=== PATIENT | male | born 1960 | race Caucasian/White ===

== ENCOUNTER → 2018-06-21 06:50 | Outpatient (CLI) | payer OTHER, SELFPAY ==
[2018-06-21 08:01] LABS: Add Manual Diff / Slide Review NO; Basophils Absolute Auto 200 /uL (0-100); Basophils Percent Auto 3.3 % (0-2); Eosinophils Absolute Auto 200 /uL (0-450); Eosinophils Percent Auto 3.4 % (2-4); Hematocrit 43.7 % (41-53); Hemoglobin 14.9 g/dL (13.5-17.5); Lymphocytes Absolute Auto 1800 /uL (1100-4500); Lymphocytes Percent Auto 32.1 % (25-40); Mean Corpuscular Volume 85.3 fL (80-100); Monocytes Absolute Auto 700 /uL (0-900); Monocytes Percent Auto 12.4 % (3-14); Neutrophils Absolute Auto 2800 /uL (1500-7000); Neutrophils Percent Auto 48.8 % (50-75); Platelet Count 220 X10^3/uL (150-400); Red Blood Cell Count 5.13 X10^6/uL (4.5-5.9); Red Cell Distribution Width 13.4 % (11.6-14.8); White Blood Cell Count 5.7 X10^3/uL (4.5-11.0)
[2018-06-21 08:04] LABS: Alanine Aminotransferase 41 IU/L (21-72); Albumin 4.4 g/dL (3.5-5.0); Albumin Globulin Ratio 1.4 (1.0-2.8); Alkaline Phosphatase 72 U/L (38-126); Aspartate Aminotransferase 28 IU/L (17-59); Blood Urea Nitrogen 18 mg/dL (9-20); Carbon Dioxide 24 mmol/L (22-32); Chloride 104 mmol/L (98-107); Cholesterol 231 mg/dL (140-199); Estimated Glomerular Filt Rate > 60.0 mL/min (>60); Globulin 3.1 g/dL (1.7-4.1); Glucose 114 mg/dL (70-100); HDL Cholesterol 48 mg/dL (40-60); HEMOLYSIS < 15 (0-50); LDL Cholesterol Calculated 165 mg/dL (<100); Potassium 3.8 mmol/L (3.4-5.1); Sodium 137 mmol/L (137-145); Total Protein 7.5 g/dL (6.3-8.2); Triglycerides 91 mg/dL (35-150)
[2018-06-21 08:34] LABS: Thyroid Stimulating Hormone 1.88 uIU/mL (0.47-4.68)
== END ==
PROVIDERS: PCP Family Medicine; Visit Provider Family Medicine
DX: Z00.00 Encounter for general adult medical examination without abnormal findings (principal); Z13.220 Encounter for screening for lipoid disorders; Z13.29 Encounter for screening for other suspected endocrine disorder; Z51.81 Encounter for therapeutic drug level monitoring
CPT/HCPCS: 36415; 80053; 80061; 84443; 85025

== ENCOUNTER → 2020-05-31 07:45 | Outpatient (CLI) | payer OTHER, SELFPAY ==
[2020-05-31 09:08] LABS: Alanine Aminotransferase 32 IU/L (<50); Albumin 4.3 g/dL (3.5-5.0); Albumin Globulin Ratio 1.5 (1.0-2.8); Alkaline Phosphatase 59 U/L (38-126); Aspartate Aminotransferase 30 IU/L (17-59); BUN Creatinine Ratio 25.5 (6-22); Bilirubin Total 0.9 mg/dL (0.2-1.3); Blood Urea Nitrogen 25 mg/dL (9-20); Calcium 9.4 mg/dL (8.4-10.2); Carbon Dioxide 23 mmol/L (22-32); Chloride 106 mmol/L (98-107); Cholesterol 230 mg/dL (140-199); Estimated Glomerular Filt Rate > 60.0 mL/min (>60); Globulin 2.8 g/dL (1.7-4.1); Glucose 114 mg/dL (70-100); HDL Cholesterol 45 mg/dL (40-60); HEMOLYSIS < 15 (0-50); LDL Cholesterol Calculated 162 mg/dL (<100); Potassium 4.1 mmol/L (3.4-5.1); Sodium 138 mmol/L (137-145); Total Protein 7.1 g/dL (6.3-8.2); Triglycerides 116 mg/dL (35-150)
[2020-05-31 09:39] LABS: Prostate Specific Antigen Scrn 0.775 ng/mL (0.1-4.0)
== END ==
PROVIDERS: PCP Internal Medicine; Referring Provider Internal Medicine; Visit Provider Internal Medicine
DX: E78.2 Mixed hyperlipidemia (principal); N13.8 Other obstructive and reflux uropathy; N40.1 Benign prostatic hyperplasia with lower urinary tract symptoms; Z12.5 Encounter for screening for malignant neoplasm of prostate
CPT/HCPCS: 36415; 80053; 80061; G0103

== ENCOUNTER → 2020-06-22 15:24 | Outpatient (CLI) | payer SELFPAY ==
[2020-06-22 16:08] LABS: Urine Drug scr, USCG NIDA See Separate Report
== END ==
PROVIDERS: PCP Internal Medicine
DX: Z02.1 Encounter for pre-employment examination (principal)
CPT/HCPCS: 81099

== ENCOUNTER → 2020-09-12 09:18 | Outpatient (CLI) | payer OTHER, SELFPAY ==
[2020-09-12 10:52] LABS: COVID19 -Nasal RAPID Negative (Negative)
== END ==
PROVIDERS: PCP Internal Medicine; Visit Provider Specialist
DX: Z20.822 Contact with and (suspected) exposure to COVID-19 (principal)
CPT/HCPCS: 87635; C9803

== ENCOUNTER 2020-09-14 08:54 | Day surgery (SDC) | payer OTHER, SELFPAY ==
--- NOTE | 2020-09-14 | PATH_ITS ---
[facility] Accession Number: [id number] . 01 Material submitted: . PART A: body - POLYP @65CM PART B: body - POLYP @15CM . 02 Diagnosis: A. Polyp at 65 cm: Tubular adenoma. . B. Polyp at 15 cm: Hyperplastic polyp. MRV 09/20/2020 1359 Local . 02 Electronically signed: . Betty Weeks MD, Pathologist NPI- [id number] . 01 Gross description: . Part A: POLYP @65CM: Received in formalin is 1 fragment(s) of maguire, soft tissue measuring 0.5 x 0.4 x 0.3 cm submitted entirely in 1 cassette(s) Part B: POLYP @15CM: Received in formalin is 1 fragment(s) of maguire, soft tissue measuring 0.2 x 0.2 x 0.2 cm submitted entirely in 1 cassette(s) /LATRELL 09/15/2020 0540 Local . 02 Pathologist provided ICD-10: K63.5, Z12.11 . 02 CPT . 174534, [id number] Performed at: 01 [facility] [address] [place] [address], [place], [place] [id number] MD Per Rios MD Phone: [phone] Performed at: 02 [facility] [address] [place], [place] [id number] MD Alba Monge MD Phone: [phone]
[2020-09-14 09:21] VITALS: BP 157/87; PULSE 83; RESP 16; TEMP 36.1; O2SAT 96; BMI 36.5
[2020-09-14] MEDS: LACTATED RINGERS 1,000 ML 200 ML IV (09:30)
--- NOTE | 2020-09-14 10:06 | PM.HP.1 ---
History of Present Illness History of Present Illness Date Patient Seen: 09/14/20 Time Patient Seen: 10:06 Chief complaint: SDC Narrative: The patient is a gentleman whose father had colon cancer at about this age. He is here for colonoscopy. His last exam was about fiber 6 years ago. Patient History Medical History BPH w urinary obs/LUTS Chicken pox (~1966) Surgical History Anesthesia History of appendectomy (~1963) Family & Social History Family History Father Cancer Grandfather Heart disease Grandmother Heart disease Grandfather Aneurysm Stroke Grandmother No problems noted. Mother Arrhythmia Heart disease Social History: household members spouse Tobacco & Substance use: Smoking Status Never smoker alcohol intake current alcohol intake frequency a few times a month Substance Use Type does not use Meds Home Medications and Allergies Home Medications Medication Instructions Recorded Confirmed Type alfuzosin 10 mg tablet,extended 10 mg PO DAILY #90 tab 05/29/20 06/22/20 Rx release 24 hr Allergies Allergy/AdvReac Type Severity Reaction Status Date / Time GENERIC: NKA - NO KNOWN Allergy Unknown Uncoded 06/22/20 14:50 ALLERGIES Review of Systems Review of Systems Narrative: All systems negative. Exam Vital Signs (past 8 hours): - 09/14/20 09:21 Temperature 97 F L Pulse Rate 83 Respiratory Rate 16 Blood Pressure 157/87 H Pulse Oximetry 96 Oxygen Delivery Method Room Air Narrative Exam Narrative: Pleasant cooperative patient no apparent distress. Lungs are clear to auscultation. No rales or rhonchi. Heart regular rate and rhythm no murmur gallop. Abdomen is soft nontender without mass. No obvious hernias. Patient is alert and oriented x3. Assessment & Plan Assessment & Plan narrative: The patient for a screening colonoscopy. I have discussed the procedure with them. Risks of bleeding, perforation which would necessitate major operation, failure to find remove all lesions, the potential tattoo were all discussed. All questions were answered. They wished to proceed.
--- NOTE | 2020-09-14 10:08 | PM.PREOP ---
Pre-operative Note COVID-19 COVID-19 status: Negative Result date/Date tested (Pos, Neg/Pending): 09/13/20 Interval Note History & Physical reviewed/Exam performed by Physician: Yes Changes to H&P: No ASA Class (for procedural sedation): II
--- NOTE | 2020-09-14 10:47 | P.OP.ENDO_ITS ---
Operative Date/Time/Diagnoses Date of procedure: 09/14/20 Time of procedure: 10:47 Pre-op diagnosis: Screening colonoscopy. Father had colon cancer. Last exam 5 or 6 years ago. Post-op diagnosis: same (Sigmoid diverticulosis. Two small polyps removed.) Procedure & Clinicians Study performed: Colonoscopy with cold biopsy and hot snare polypectomy Same procedure as scheduled: Yes Indications: Screening Surgeon: Tereso Lombardo Procedure Notes SCOAP/Timeout: Performed Procedure in detail: The patient was placed in the left lateral decubitus position and underwent IV sedation directed by the surgeon consisting of travis mack and Leslye. Digital exam was unremarkable. Prostate is mildly enlarged.. The scope was inserted and advanced through the rectum into the sigmoid, descending, transverse, and ascending colon. A small polyp was noted in the rectum and decided to remove it on the way out. Patient was noted to have sigmoid diverticulosis as well.. The cecum was reached identified by the ileocecal valve and the appendiceal opening. The ileocecal valve was unable to be cannulated. The scope was gradually brought out. Two Polyps were found, 1 at 65 cm and 1 at 15 cm from the anal verge. The lesion is 65 was removed with cold biopsy forceps in the other was snared and the base cauterized.. The scope ultimately was retroflexed in the rectum. The appearance was remarkable for internal hemorrhoids without ulceration.. The scope was removed and the patient tolerated the procedure well. The prep was good. Sedation minutes: 33 Findings: diverticulosis (Sigmoid) and polyp (2 small polyps) Specimen(s): other (Polyps) Complications: none Post-procedure Recommendations: Colonscopy in 5 years Follow up: as needed Disposition: PACU
[2020-09-14 10:49] VITALS: BP 112/60; PULSE 60; RESP 14; TEMP 37.7; O2SAT 96
[2020-09-14] MEDS: fentaNYL 250 MCG/5 ML INJ IV (10:49)
[2020-09-14] MEDS: MIDAZOLAM 5 MG/5 ML VIAL IV (10:50)
[2020-09-14 10:54] VITALS: BP 130/87; PULSE 65; RESP 14; O2SAT 97
[2020-09-14 11:10] VITALS: BP 130/77; PULSE 62; RESP 14; O2SAT 97
[2020-09-14 11:23] VITALS: BP 140/66; PULSE 72; RESP 14; TEMP 36.1; O2SAT 97
== END 2020-09-14 11:28 | disposition home or self-care (01) ==
PROVIDERS: PCP Internal Medicine; Referring Provider Specialist; Visit Provider Specialist
PROC: 0DJD8ZZ Inspection of Lower Intestinal Tract, Via Natural or Artificial Opening Endoscopic (ICD-10-PCS; CPT 45378; principal; 2020-09-14 10:00)
DX: D12.6 Benign neoplasm of colon, unspecified (principal); K57.30 Diverticulosis of large intestine without perforation or abscess without bleeding; Z12.11 Encounter for screening for malignant neoplasm of colon; Z80.0 Family history of malignant neoplasm of digestive organs
CPT/HCPCS: 45385; 45380; 99152; 99153; J2250; J3010

== ENCOUNTER → 2021-10-18 08:45 | Outpatient (CLI) | payer OTHER, SELFPAY ==
[2021-10-18 11:19] LABS: Alanine Aminotransferase 33 IU/L (<50); Albumin 4.4 g/dL (3.5-5.0); Albumin Globulin Ratio 1.3 (1.0-2.8); Alkaline Phosphatase 75 U/L (38-126); Aspartate Aminotransferase 26 IU/L (17-59); BUN Creatinine Ratio 16.3 (6-22); Bilirubin Total 0.8 mg/dL (0.2-1.3); Blood Urea Nitrogen 16 mg/dL (9-20); Calcium 9.3 mg/dL (8.4-10.2); Carbon Dioxide 28 mmol/L (22-32); Chloride 102 mmol/L (98-107); Cholesterol 260 mg/dL (140-199); Estimated Glomerular Filt Rate > 60 mL/min (>60); Globulin 3.5 g/dL (1.7-4.1); Glucose 116 mg/dL (70-100); HDL Cholesterol 47 mg/dL (40-60); HEMOLYSIS < 15 (0-50); LDL Cholesterol Calculated 189 mg/dL (<100); Potassium 4.7 mmol/L (3.4-5.1); Sodium 138 mmol/L (137-145); Total Protein 7.9 g/dL (6.3-8.2); Triglycerides 121 mg/dL (35-150)
[2021-10-18 11:48] LABS: Prostate Specific Antigen Scrn 1.19 ng/mL (0.1-4.0)
[2021-10-25 18:46] LABS: Percent Free Testosterone 2.24 % (1.50-4.20); Testosterone Free 6.41 ng/dL (5.00-21.00); Testosterone Total 286.1 ng/dL (264.0-916.0)
== END ==
PROVIDERS: PCP Internal Medicine; Referring Provider Internal Medicine; Visit Provider Internal Medicine
DX: N13.8 Other obstructive and reflux uropathy (principal); N40.1 Benign prostatic hyperplasia with lower urinary tract symptoms; N62 Hypertrophy of breast; Z12.5 Encounter for screening for malignant neoplasm of prostate; R63.5 Abnormal weight gain
CPT/HCPCS: 36415; 80053; 80061; 84402; 84403; 84443; G0103

== ENCOUNTER → 2022-06-17 06:34 | Outpatient (CLI) | payer OTHER, SELFPAY ==
[2022-06-17 08:54] LABS: BUN Creatinine Ratio 13.3 (6-22); Blood Urea Nitrogen 13 mg/dL (9-20); Calcium 9.3 mg/dL (8.4-10.2); Carbon Dioxide 27 mmol/L (22-32); Chloride 103 mmol/L (98-107); Estimated Glomerular Filt Rate > 60 mL/min (>60); Glucose 113 mg/dL (80-110); HEMOLYSIS < 15 (0-50); Potassium 4.3 mmol/L (3.4-5.1); Sodium 138 mmol/L (137-145)
== END ==
PROVIDERS: PCP Internal Medicine; Referring Provider Urology; Visit Provider Urology
DX: R31.21 Asymptomatic microscopic hematuria (principal)
CPT/HCPCS: 36415; 80048

== ENCOUNTER → 2022-06-19 13:16 | Outpatient (CLI) | payer OTHER, SELFPAY ==
--- NOTE | 2022-06-19 13:17 | DI.CT.S_ITS ---
PROCEDURE: CT ABDOMEN PELVIS WO/W CON INDICATIONS: Asymptomatic microscopic hematuria, secondhand smoke exposur TECHNIQUE: Optional 5 mm thick noncontrast images acquired from the diaphragm to the symphysis pubis. After the administration of intravenous contrast, 5 mm thick images acquired from the diaphragm to the symphysis pubis after a 10-minute delay. 2 mm thick coronal and sagittal reformats were then performed of the kidneys and ureters. For radiation dose reduction, the following was used: automated exposure control, adjustment of mA and/or kV according to patient size. COMPARISON: None. FINDINGS: Image quality: Excellent. Lung bases: Lung bases are clear. Heart size is normal. Urinary system: Both kidneys are normal in size, without hydronephrosis or nephrolithiasis on pre-contrast images. No perinephric fat stranding. There is normal bilateral renal enhancement. Renal calyces appear normal in morphology when filled with contrast. Opacified portions of both ureters demonstrate normal caliber. There is a posterior protrusion of the urinary bladder, likely continuous with the median zone of the prostate. Other solid organs: Liver is normal in size and enhancement. Gallbladder contain stones without inflammation . Biliary system is non dilated. Pancreas enhances normally. Spleen is normal in size and enhancement. No adrenal nodules. Peritoneum and bowel: Bowel loops demonstrate normal wall thickness and caliber. No free fluid or air. Nodes and vessels: No retroperitoneal or mesenteric adenopathy by size criteria. Aorta and inferior vena cava are normal in size. Abdominal wall: No ventral hernias. Pelvis: No pathologic free pelvic fluid. Bilateral inguinal hernias containing fat. Bones: No suspicious bony lesions. No vertebral body compression fractures. IMPRESSION: No nephrolithiasis or filling defect within the opacified renal collecting system. Protrusion of the posterior bladder wall, probably median zone of the prostate hypertrophy, but cannot exclude separate mass. Consider direct visualization if not already performed. Dictated by: Yazan Ashley M.D. on 06/19/2022 at 15:08 Approved by: Yazan Ashley M.D. on 06/19/2022 at 15:13
== END ==
PROVIDERS: PCP Internal Medicine; Referring Provider Urology; Visit Provider Urology
DX: K40.20 Bilateral inguinal hernia, without obstruction or gangrene, not specified as recurrent (principal); K80.20 Calculus of gallbladder without cholecystitis without obstruction; R31.21 Asymptomatic microscopic hematuria; Z77.22 Contact with and (suspected) exposure to environmental tobacco smoke (acute) (chronic)
CPT/HCPCS: 74178; Q9967

== ENCOUNTER 2022-07-08 08:52 | Day surgery (SDC) | payer OTHER, SELFPAY ==
[2022-07-08] VITALS (7 sets, daily range): BP systolic 145–161; BP diastolic 82–97; PULSE 66–76; RESP 10–21; TEMP 36.5–36.7; O2SAT 91–97; BMI 38.0
[2022-07-08] MEDS: LACTATED RINGERS 1,000 ML 21 ML IV (09:21)
--- NOTE | 2022-07-08 10:00 | PM.PREOP ---
Pre-operative Note COVID-19 COVID-19 status: Not tested Criteria for continued procedure: Delay expected to result in less-positive ultimate med/surg outcome and Non-surgical alternatives not available or appropriate per current SOC Interval Note History & Physical reviewed/Exam performed by Physician: Yes Changes to H&P: No
[2022-07-08] MEDS: CEFAZOLIN 2 GM/100 ML PREMIX 100 ML IV (10:33)
--- NOTE | 2022-07-08 10:53 | SUR.OPER ---
Lithotomy on padded OR bed, head on pillow, Right arm secured on arm boards at <90 degrees abduction and padded with a blanket and gel pad. Left arm tucked with gel pad. Legs secured in padded yellow fins stirrups.
--- NOTE | 2022-07-08 11:36 | P.OP_ITS ---
Procedure & Clinicians Procedure: Photo vaporization/laser enucleation of prostate Same procedure as scheduled: Yes Indications: This is a very pleasant 61-year-old male who presented originally with worsening complaints of bladder outlet obstruction on maximal medical therapy. He underwent evaluation which revealed a large median lobe as the responsible etiology presents this time for photo vaporization and laser enucleation of prostate to alleviate his bladder outlet obstructive symptoms, lower urinary tract symptoms. Surgeon: Bruce Hankins Click Yes if Unassisted: Yes Operative Notes Findings: Urethral meatus is normal, urethra is normal along its length with normal mucosa, the sphincter as well coapted, prostate exhibits moderate approaching severe bilobar or lateral lobe obstruction and a large median lobe obstructing the bladder outlet. The ureteral orifices in approximately normal position with clear efflux. There severe trabeculation cellules within the bladder no mucosal lesions or other worrisome findings were noted. The patient received a total laser time of 15 minutes 18 seconds and total laser energy of 133,264 joules. He had a [address] placed at the end of the case with 14 cc in the balloon Closure Type: not applicable Specimen(s): none sent Prosthetic devices, grafts, tissues, transplants, or devices: [address] Katz catheter with 14 cc in the balloon Applied: catheter ([address] Katz catheter with 14 cc in the balloon) Estimated Blood Loss (mL): 20 Blood products transfused: none Procedure in detail: Procedure in detail: After informed consent was obtained, the patient was identified and brought to the operating room where he was placed in a supine position on the table and had anesthesia induced and maintained. Ensuring an adequate level of anesthesia the patient was transitioned to the lithotomy position where he was prepped, draped and prepared for Transurethral procedure. After prepping draping, ensuring an adequate level of anesthesia and time-out the laser resectoscope was passed through the urethra prostate and into the bladder under direct vision. Cystoscopy was performed the position of the ureteral orifices noted. The laser fiber was then inserted and the level of the verumontanum was marked on the lateral lobes and floor of the prostate as the distal most aspect of resection. Then flow channels were made the right and left prostatic floor lateral to the median lobe. These were deep into the surgical capsule. The median lobe was then undermined and enucleated. While it was still attached it was then vaporized. Attention was then turned to the lateral lobes which were resected or vaporized from the bladder neck to the verumontanum until the prostatic fossa was widely patent. This was at the above-mentioned laser time and administration of the laser energy. The bladder was then left full the scope was removed with the laser in standby and a vigorous stream was noted. The 22 Liberian catheter was then passed easily into the bladder the balloon filled with 14 cc of sterile water and was placed to gravity drainage hemostasis was good. There were no complications the patient tolerated the procedure well and was awakened transferred to the postanesthesia care unit for recovery and then to be transferred to home. Patient is to go home with the Katz catheter to have it removed in the a.m.. Complications: none Post-operative Condition: stable Disposition: PACU Plan for aftercare: Patient to be discharged to home to follow up my office in the morning for catheter removal and then in approximately 10-14 days for follow-up.
[2022-07-08] MEDS: PHENAZOPYRIDINE 100 MG TABLET 200 MG PO (11:48)
[2022-07-08] MEDS: OXYBUTYNIN 5 MG TABLET PO (11:48)
== END 2022-07-08 12:41 | disposition home or self-care (01) ==
PROVIDERS: PCP Internal Medicine; Referring Provider Urology; Visit Provider Urology
PROC: (CPT 52648; principal; 2022-07-08 10:15)
DX: N40.1 Benign prostatic hyperplasia with lower urinary tract symptoms (principal); N13.8 Other obstructive and reflux uropathy
CPT/HCPCS: 52649; J0690; J1100; J2250; J2405; J2704; J3010

== ENCOUNTER → 2022-07-24 15:32 | Outpatient (CLI) | payer OTHER, SELFPAY | PROVIDERS: PCP Internal Medicine; Visit Provider Urology | DX: N40.1 Benign prostatic hyperplasia with lower urinary tract symptoms (principal); R39.9 Unspecified symptoms and signs involving the genitourinary system; N13.8 Other obstructive and reflux uropathy | CPT/HCPCS: 51798; 81002; 87086 ==

== ENCOUNTER → 2022-08-21 15:22 | Outpatient (CLI) | payer OTHER, SELFPAY | PROVIDERS: PCP Internal Medicine; Visit Provider Urology | DX: N40.1 Benign prostatic hyperplasia with lower urinary tract symptoms (principal); N13.8 Other obstructive and reflux uropathy; R31.21 Asymptomatic microscopic hematuria; R39.9 Unspecified symptoms and signs involving the genitourinary system | CPT/HCPCS: 51798; 81002; 87086 ==

== ENCOUNTER → 2023-08-04 06:37 | Outpatient (CLI) | payer OTHER, SELFPAY ==
[2023-08-04 08:33] LABS: Alanine Aminotransferase 37 IU/L (<50); Albumin 4.3 g/dL (3.5-5.0); Albumin Globulin Ratio 1.6 (1.0-2.8); Alkaline Phosphatase 72 U/L (38-126); Aspartate Aminotransferase 27 IU/L (17-59); BUN Creatinine Ratio 18.5 (6-22); Bilirubin Total 0.9 mg/dL (0.2-1.3); Blood Urea Nitrogen 17 mg/dL (9-20); Calcium 9.3 mg/dL (8.4-10.2); Carbon Dioxide 29 mmol/L (22-32); Chloride 105 mmol/L (98-107); Cholesterol 253 mg/dL (140-199); Estimated Glomerular Filt Rate > 60 mL/min (>60); Globulin 2.7 g/dL (1.7-4.1); Glucose 119 mg/dL (80-110); HDL Cholesterol 51 mg/dL (40-60); HEMOLYSIS < 15 (0-50); LDL Cholesterol Calculated 161 mg/dL (<100); Potassium 4.5 mmol/L (3.4-5.1); Sodium 139 mmol/L (137-145); Triglycerides 207 mg/dL (35-150)
[2023-08-04 08:59] LABS: Prostate Specific Antigen Scrn 0.743 ng/mL (0.1-4.0)
[2023-08-04 09:02] LABS: TSH w/ Reflex to FT4 2.44 uIU/mL (0.47-4.68)
== END ==
LOC: LAB 06:38
PROVIDERS: PCP Internal Medicine; Referring Provider Internal Medicine; Visit Provider Internal Medicine
DX: Z13.6 Encounter for screening for cardiovascular disorders (principal); Z13.1 Encounter for screening for diabetes mellitus; Z13.220 Encounter for screening for lipoid disorders; Z12.5 Encounter for screening for malignant neoplasm of prostate; E03.9 Hypothyroidism, unspecified; I10 Essential (primary) hypertension
CPT/HCPCS: 36415; 80053; 80061; 84443; G0103

== ENCOUNTER → 2024-11-17 06:37 | Outpatient (CLI) | payer OTHER, SELFPAY ==
[2024-11-17 09:40] LABS: Alanine Aminotransferase 25 IU/L (<50); Albumin 4.2 g/dL (3.5-5.0); Albumin Globulin Ratio 1.7 (1.0-2.8); Alkaline Phosphatase 68 U/L (38-126); Blood Urea Nitrogen 19 mg/dL (9-20); Calcium 9.3 mg/dL (8.4-10.2); Carbon Dioxide 24 mmol/L (22-32); Chloride 103 mmol/L (98-107); Cholesterol 244 mg/dL (140-199); Estimated Glomerular Filt Rate > 60 mL/min (>60); Globulin 2.5 g/dL (1.7-4.1); Glucose 118 mg/dL (70-99); HDL Cholesterol 55 mg/dL (40-60); HEMOLYSIS < 15 (0-50); Potassium 4.6 mmol/L (3.4-5.1); Sodium 137 mmol/L (137-145); Total Protein 6.7 g/dL (6.3-8.2); Triglycerides 144 mg/dL (35-150)
== END ==
PROVIDERS: PCP Internal Medicine; Referring Provider Internal Medicine; Visit Provider Internal Medicine
DX: E78.2 Mixed hyperlipidemia (principal); I10 Essential (primary) hypertension; Z12.5 Encounter for screening for malignant neoplasm of prostate
CPT/HCPCS: 36415; 80053; 80061; G0103